=== PATIENT | female | born 1960 | race Caucasian/White ===

== ENCOUNTER → 2017-01-19 | Outpatient (CLI) | payer OTHER | LOC: BRMIMAGING 11:09 | PROVIDERS: ATTEND Obstetrics & Gynecology | DX: Z12.31 Encounter for screening mammogram for malignant neoplasm of breast (principal) | CPT/HCPCS: G0202 ==

== ENCOUNTER → 2018-01-20 | Outpatient (CLI) | payer OTHER | LOC: BRMIMAGING 14:21 | PROVIDERS: ATTEND Obstetrics & Gynecology | DX: Z12.31 Encounter for screening mammogram for malignant neoplasm of breast (principal) ==

== ENCOUNTER 2018-04-27 11:11 | Day surgery (SDC) | payer OTHER ==
--- NOTE | 2018-04-26 14:41 | GHP ---
DATE OF ADMISSION: 04/27/2018 DATE OF SURGERY: 04/27/2018 CHIEF COMPLAINT: Right forefoot pain. HISTORY OF PRESENT ILLNESS: Kaylee is a 58-year-old with history of progressive right 1st MTP pain and stiffness. PAST MEDICAL HISTORY: Positive for hypothyroid. MEDICINES: Include thyroid, diclofenac, Estrace, and Restasis eyedrops. ALLERGIES: She lists no drug allergies. SOCIAL HISTORY: Negative for tobacco use. FAMILY HISTORY: Noncontributory. PHYSICAL EXAM: GENERAL: She is alert and oriented x3. In no acute distress. HEENT: Head normocep halic. Pupils equal, round, reactive to light. Extraocular movements intact. NECK: Supple. No JV D. CHEST: Clear to auscultation. HEART: Regular rate and rhythm. No murmurs or gallops. ABDOMEN: S oft, nontender, nondistended. No organomegaly. EXTREMITIES: Reveals mild swelling and stiffness in her right 1st MTP joint. ASSESSMENT: Right hallux rigidus. PLAN: The patient is scheduled to undergo a right 1st MTP cheilectomy, debridement, and implant rik arthroplasty. /[id number]/MODL
[2018-04-27] MEDS ORDERED: LR 1,000 ML IV ONE (11:28)
[2018-04-27] MEDS ORDERED: BUPIVACAINE 0.5% 30 ML SDV ONE (11:37)
[2018-04-27] MEDS ORDERED: MIDAZOLAM 2 MG/2 ML VIAL IVP ONE (12:05)
--- NOTE | 2018-04-27 12:07 | PDANEPAE ---
ANE Past Medical History - Cardiovascular History Hx Hypertension: No Hx Arrhythmias: No Hx Chest Pain: No Hx Coronary Artery / Peripheral Vascular Disease: No Hx CHF / Valvular Disease: No Hx Palpitations: No - Pulmonary History Hx COPD: No Hx Asthma/Reactive Airway Disease: No Hx Recent Upper Respiratory Infection: No Hx Oxygen in Use at Home: No Hx Sleep Apnea: No Sleep Apnea Screening Result - Last Documented: Negative - Neurologic History Hx Cerebrovascular Accident: No Hx Seizures: No Hx Dementia: No - Endocrine History Hx Diabetes: No Hypothyroid: Yes Obesity: mild Endocrine History Comment: HYPOTHYROID - Renal History Hx Renal Disorders: No Renal History Comment: OCCAS LEAKAGE - Liver History Hx Hepatic Disorders: No - Neurological & Psychiatric Hx Hx Neurological and Psychiatric Disorders: No - Cancer History Hx Cancer: No - GI History GERD: no Hx Gastrointestinal Disorders: No - Other Health History Other Health History: ECZEMA. SJOGRENS SYNDROME - Chronic Pain History Chronic Pain: Yes (R PAIN) - Surgical History Prior Surgeries: TUBAL LIGATION. LIPOSUCTION ANE Review of Systems Review of Systems: - Exercise capacity METS (RN): 5 METS ANE Patient History - Allergies Allergies/Adverse Reactions: No Known Allergies Allergy (Unverified 04/26/18 10:30) - Home Medications Home medications: home medication list seen and reviewed Home Medications: [place] Thyroid 04/26/18 [Last Taken 04/27/18] Aspirin 04/26/18 [Last Taken 1 Week Ago ~04/20/18] Estrace 04/26/18 [Last Taken 04/23/18] Herbals/Supplements -Info Only 04/26/18 [Last Taken 3 Days Ago ~04/24/18] Flonase Nasal [place] 04/27/18 [Last Taken 04/27/18] Restasis Opht Drops(*) 04/27/18 [Last Taken 04/27/18] - NPO status NPO Status: no food or drink >8 hours NPO Since - Liquids (Date): 04/27/18 NPO Since - Liquids (Time): 07:30 NPO Since - Solids (Date): 04/26/18 NPO Since - Solids (Time): 23:30 - Anes Hx Anes Hx: no prior problems - Smoking Hx Smoking Status: Never smoked - Family Anes Hx Family Hx Anesthesia Complications: NEG ANE Labs/Vital Signs - Vital Signs Blood Pressure: 151/80 Heart Rate: 70 Respiratory Rate: 14 O2 Sat (%): 96 Height: 166.37 cm Weight: 79.379 kg ANE Physical Exam - Airway Neck exam: FROM Mallampati Score: Class 2 Mouth exam: normal dental/mouth exam - Pulmonary Pulmonary: no respiratory distress, no rales or rhonchi, clear to auscultation - Cardiovascular Cardiovascular: regular rate and rhythym, no murmur, rub, or gallop - ASA Status ASA Status: II ANE Anesthesia Plan Anesthesia Plan: GA w LMA
[2018-04-27] MEDS ORDERED: CEFAZOLIN 2 GM/DEXTROSE/100 ML BAG IV ONE (12:15)
[2018-04-27] MEDS ORDERED: MIDAZOLAM 2 MG/2 ML VIAL ONE (12:15)
[2018-04-27] MEDS ORDERED: ceFAZolin 2 GM/DEXTROSE 100 ML IV ONE (12:16)
--- NOTE | 2018-04-27 12:17 | PDHPUP ---
History & Physical Update H&P update statement: This history and physical update is based on an assessment of the patient which was completed after admission or registration (within 24 hours), but prior to the surgery/procedure. H&P update: H&P reviewed & patient examined, no change in patient's condition since H&P completed H&P changes: no changes
--- NOTE | 2018-04-27 12:19 | POSTOPPROG ---
Post Op Note Date of Operation: 04/27/18 Surgeon: Marco Burgess Anesthesia: LMA Pre-op Diagnosis: R hallux rigidus Post-op Diagnosis: same Procedure: R 1st MTP implant hemiarthroplasty (Cartiva) Inf/Abcess present in the surg proc area at time of surgery?: No EBL: Minimal
[2018-04-27] MEDS ORDERED: PROPOFOL 200 MG/20 ML VIAL ONE (12:21)
[2018-04-27] MEDS ORDERED: fentaNYL 100 MCG/2 ML INJ ONE ×2 (12:21→13:53)
[2018-04-27] MEDS ORDERED: DEXAMETHASONE 4 MG/ML VIAL ONE ×2 (12:22)
[2018-04-27] MEDS ORDERED: ONDANSETRON 4 MG/2 ML VIAL ONE (12:22)
[2018-04-27] MEDS ORDERED: NALOXONE HCL 0.4 MG/ML INJ IVP PRN (13:16)
[2018-04-27] MEDS ORDERED: ACETAMINOPHEN 500 MG TAB PO PRN (13:16)
[2018-04-27] MEDS ORDERED: ONDANSETRON 4 MG/2 ML VIAL IVP PRN (13:16)
[2018-04-27] MEDS ORDERED: PROMETHAZINE HCL 25 MG/ML INJ IVP PRN (13:16)
[2018-04-27] MEDS ORDERED: oxyCODONE IR 5 MG TAB PO PRN (13:16)
[2018-04-27] MEDS ORDERED: HYDROCODONE/APAP 5/325 TAB PO PRN (13:16)
[2018-04-27] MEDS ORDERED: LR 500 ML IV PRN (13:16)
--- NOTE | 2018-04-27 13:53 | POSTANESTH ---
Post Anesthetic Evaluation Cardiovascular Status: Normal, Stable, Similar to Pre-Op Cond Respiratory Status: Normal, Stable, Similar to Pre-op Cond. Level of Consciousness/Mental Status: Can Participate in Eval, Mildly Sleepy, Arousable Pain Control: Adequate, Prn Tx Ordered Nausea/Vomiting Control: Adequate, Prn Tx Ordered Complications Possibly Related to Anesthesia: None Noted
[2018-04-27] MEDS: fentaNYL 100 MCG/2 ML INJ IVP PRN ×2 (13:56→14:08)
[2018-04-27] MEDS ORDERED: oxyCODONE IR 5 MG TAB ONE (14:11)
--- NOTE | 2018-04-27 14:42 | GOP ---
DATE OF OPERATION: 04/27/2018 SURGEON: Marco Burgess MD ANESTHESIA: General. PREOPERATIVE DIAGNOSIS: Right hallux rigidus. POSTOPERATIVE DIAGNOSIS: Right hallux rigidus. PROCEDURE PERFORMED: 1. Right 1st metatarsophalangeal cheilectomy and debridement. 2. Right 1st metatarsophalangeal implant hemiarthroplasty (Cartiva). 3. Right great toe proximal phalanx osteotomy. 4. Intraoperative use of fluoroscopy. FINDINGS: ESTIMATED BLOOD LOSS: Minimal. INDICATIONS: Patient is a 58-year-old history of progressive right 1st MTP pain. Clinically and rad iographically, she is noted to have advanced hallux rigidus. Based on her persistence of symptoms re fractory to nonoperative treatment, she is interested in pursuing operative treatment. From an opera tive standpoint, options, including arthrodesis and implant hemiarthroplasty were discussed with the anticipated risk and benefits of both. The patient elected to pursue implant hemiarthroplasty. She acknowledged she understood the potential risks of the operation including, but not limited to bleedi ng, infection, neurovascular damage leading to loss of limb or limb function, implant failure requiri ng removal, revision, or conversion to arthrodesis, and anesthetic risks. She acknowledged she under stood the potential risks, planned procedure, and postoperative plan well, and had all questions answ ered prior to surgery. She gave consent for the operative procedure. DESCRIPTION OF PROCEDURE: The patient was brought to the operating after IV antibiotics were adminis tered. She was placed in supine position where general anesthetic was administered. Tourniquet was placed on the right calf, bump underneath the right hip and shoulder, and the right lower extremity w as prepped and draped in standard sterile fashion. After marking the incision, Satish wrap exsanguinati on, tourniquet was inflated to 250. A longitudinal incision was made along the dorsal aspect of 1st MTP joint. Skin and subcutaneous tis marli were sharply incised. Sharp dissection was carried medial to the EHL tendon incising the joint c apsule. The capsule was reflected medially and laterally. Full thickness chondral loss was noted on the metatarsal head. Utilizing a saw and rongeur, bony prominences on the dorsal, medial, and later al aspects of the metatarsal head and proximal phalanx were removed. The joint was manipulated, free ing up the plantar capsule and gaining full motion. A guide pin from the Cartiva implant was inserte d into the central aspect of the metatarsal head. Position was checked fluoroscopically and found to be optimal. Based on intraoperative templating, a 10 mm coring drill was utilized and a 10 mm Carti va implant was impacted, remaining approximately 3 mm proud. The toe was taken through range of motion, found to have no evidence of impingement. There was some plantar flexion of the toe, however. It was felt that leaving in this position would cause difficult y ambulating without shoes due to excess pressure on the tip of the toe. It was felt that a dorsifle xion osteotomy of the proximal phalanx would be prudent. The incision was extended slightly distally . After pre-drilling with a 2.0 mm drill bit on the dorsal aspect of the proximal phalanx, a saw was utilized to remove a dorsally based wedge from the proximal aspect of the proximal phalanx. The ost eotomy was manually compressed closed as the plantar cortex was left intact. Through the 2.0 mm dril l holes, 1.5 mm drill holes were drilled through the plantar cortex. Two 2.0 mm cortical screws of a ppropriate length were inserted gaining excellent purchase. Fluoroscopic views confirmed favorable o steotomy and hardware positions. The toe regained a more normal position. Attention was directed towards closure. The capsule was closed with 2-0 Vicryl suture in interrupted fashion. Subcutaneous tissue closed with 3-0 Vicryl suture in interrupted fashion. Skin closed wit h 4-0 nylon interrupted sutures. 0.5% Marcaine without epinephrine was injected in the wound site an d in a digital block manner. The patient states wounds were dressed with sterile Adaptic, 4 x 4, Ker lix, and Coban. Patient tolerated the procedure well, was taken to the recovery room, extubated in s table condition postoperatively. All sponge, needle, and instrument counts were reported as being co rrect. DRAINS: None. COMPLICATIONS: None. PLAN: The patient will be discharged home, weightbearing as tolerated in a postop shoe. /[id number]/MODL
[2018-04-27 15:38] VITALS: BP 147/87
== END 2018-04-27 15:37 | disposition home or self-care (01) ==
LOC: FSGY 11:11
PROVIDERS: ATTEND Orthopaedic Surgery Foot and Ankle Surgery
DX: M20.21 Hallux rigidus, right foot (principal); E03.9 Hypothyroidism, unspecified
CPT/HCPCS: C1713; J0690; J1100; J2250; J2405; J2704; J3010